=== PATIENT | female | born 1960 | race Caucasian/White ===

== ENCOUNTER 2018-09-26 07:25 | Day surgery (SDC) | payer BC ==
[2018-09-26 08:02] VITALS: BMI 32.2
[2018-09-26 09:43] VITALS: TEMP 97.6
[2018-09-26 10:36] VITALS: BP 120/60; PULSE 83
--- NOTE | 2018-09-27 15:51 | PATH ---
Surgical Pathology Report Patient Name: BRITNI NI [facility]. Rec. #: [id number] /Age/Gender: 1960 (Age: 58) / F Account: [id number] Location: ASU-ENDOSCOPY Taken: 09/26/2018 Received: 09/26/2018 Reported: 09/27/2018 Physicians: Mirza Drake M.D. Specimen(s) Received A: BX 2ND PORTION DUODENUM AND DUODENAL BULB B: BX FUNDUS C: BX GASTRIC BODY POLYP D: BX ANTRUM E: BX TRANSVERSE COLON POLYPS F: BX RIGHT COLON POLYP G: BX RECTAL POLYP Clinical History History of gastric polyp, adenoma surveillance Postoperative diagnosis: Gastric polyp, colon polyps Final Diagnosis A. DUODENUM, SECOND PORTION AND DUODENAL BULB, BIOPSY: DUODENAL MUCOSA WITH MILD ACUTE AND CHRONIC DUODENITIS AND PRESERVED VILLOUS ARCHITECTURE. B. STOMACH, FUNDUS, BIOPSY: GASTRIC MUCOSA WITH SEVERE CHRONIC ACTIVE GASTRITIS. Immunohistochemical STAIN FOR H. Pylori is negative C. GASTRIC BODY, POLYP, BIOPSY: POLYPOID GASTRIC BODY MUCOSA WITH MODERATE CHRONIC ACTIVE GASTRITIS AND FOCAL INTESTINAL METAPLASIA. Immunohistochemical STAIN FOR H. Pylori is negative D. STOMACH, ANTRUM, BIOPSY: GASTRIC ANTRAL MUCOSA WITH MILD CHRONIC ACTIVE GASTRITIS. Immunohistochemical STAIN FOR H. Pylori is negative. E. TRANSVERSE COLON, POLYPS, BIOPSY: POLYPOID COLONIC MUCOSA WITH PROMINENT LYMPHOID AGGREGATE. F. COLON, RIGHT, POLYP, BIOPSY: TUBULAR ADENOMA. G. RECTAL, POLYP, BIOPSY: TUBULAR ADENOMA. Electronically Signed Mckenna Pak M.D. Gross Description A. Received in formalin, labeled "biopsy second portion of duodenum and duodenal bulb" are 3 gonzalez, irregular portions of soft tissue ranging from 0.3-0.4 cm. in greatest dimension. The specimens are submitted in toto in one cassette. B. Received in formalin, labeled "biopsy fundus" are 5 gonzalez, irregular portions of soft tissue ranging from 0.2-0.4 cm. in greatest dimension. The specimens are submitted in toto in one cassette. C. Received in formalin, labeled "biopsy gastric body polyp" are 2 gonzalez, irregular portions of soft tissue measuring 0.2 and 0.4 cm. in greatest dimension. The specimens are submitted in toto in one cassette. D. Received in formalin, labeled "biopsy antrum" are 4 gonzalez, irregular portions of soft tissue ranging from 0.2-0.5 cm. in greatest dimension. The specimens are submitted in toto in one cassette. E. Received in formalin, labeled "biopsy transverse colon polyps" are 4 gonzalez, irregular portions of soft tissue ranging from 0.1-0.5 cm. in greatest dimension. The specimens are submitted in toto in one cassette. F. Received in formalin, labeled "biopsy right colon polyp" is a gonzalez, irregular portion of soft tissue measuring 0.4 cm. in greatest dimension. The specimen is submitted in toto in one cassette. G. Received in formalin, labeled "biopsy rectal polyp" is a gonzalez, irregular portion of soft tissue measuring 0.5 cm. in greatest dimension. The specimen is submitted in toto in one cassette. 09/26/[address] [facility]09/26/2018
== END 2018-09-26 11:01 | disposition home or self-care (01) ==
LOC: JASU-ENDO 07:25
PROVIDERS: ATTEND Internal Medicine Gastroenterology
PROC: 0DBL8ZX Excision of Transverse Colon, Via Natural or Artificial Opening Endoscopic, Diagnostic (ICD-10-PCS; 2018-09-26)
PROC: 0DBP8ZX Excision of Rectum, Via Natural or Artificial Opening Endoscopic, Diagnostic (ICD-10-PCS; 2018-09-26)
PROC: 0DB68ZX Excision of Stomach, Via Natural or Artificial Opening Endoscopic, Diagnostic (ICD-10-PCS; 2018-09-26)
PROC: 0DBK8ZX Excision of Ascending Colon, Via Natural or Artificial Opening Endoscopic, Diagnostic (ICD-10-PCS; principal; 2018-09-26 08:30)
DX: Z12.11 Encounter for screening for malignant neoplasm of colon (principal); D12.2 Benign neoplasm of ascending colon; D12.3 Benign neoplasm of transverse colon; K62.1 Rectal polyp; K64.8 Other hemorrhoids; K31.7 Polyp of stomach and duodenum
CPT/HCPCS: 88305-TC; 88342-TC

== ENCOUNTER 2019-08-02 08:16 | Day surgery (SDC) | payer BC ==
[2019-08-02 08:43] VITALS: BMI 31.7
--- NOTE | 2019-08-02 09:46 | HP ---
Satellite [facility] - Chief Complaint Chief Complaint: right shoulder pain - Past Medical History Allergies/Adverse Reactions: Allergies Allergy/AdvReac Type Severity Reaction Status Date / Time egg Allergy Verified 09/26/18 08:13 shrimp Allergy Verified 08/02/19 08:44 - Current Medications Current Medications: Home Medications Medication Instructions Recorded Levothyroxine [Synthroid -] 150 mcg PO DAILY@0700 #0 tablet 09/20/12 Insulin Glargine/Lixisenatide 20 unit SQ BID 09/26/18 [Soliqua 100 Unit-33 Mcg/ml Pen] Lisinopril 5 mg PO DAILY 09/26/18 Oxycodone HCl/Acetaminophen 1 - 2 tab PO Q6H #30 tab MDD 6 08/02/19 [Percocet 5-325 mg Tablet] Satellite Physical Exam - Physical Examination Vital Signs: Vital Signs Period Temp Pulse Resp BP Sys/Meek Pulse Ox Last 24 Hr 97.8 F-97.8 F 80-80 20-20 145-145/67-67 99 General Appearance: Well Nourished, Well Developed, Alert & Oriented x3 ENT: Clear Lung: Normal air movement Extremities: Other (right shoulder- + ttp, decr rom, + neer, + navarro, + empty can, nvi, MRI + rct) Neurological: Intact, Alert, Oriented Satellite Impression/Plan - Impression/Plan Impression: right shoulder rct Operative Procedure: right shoulder arthroscopy with RCR, SAD Date to be Performed: 08/02/19
[2019-08-02] MEDS ORDERED: MIDAZOLAM HCL 2 MG/2 ML SINGLE DOSE VIAL ONE ×2 (10:44)
[2019-08-02] MEDS ORDERED: ROPIVACAINE HCL 0.5% 30ML VIAL ONE (10:45)
[2019-08-02] MEDS ORDERED: KETOROLAC TROMETHAMINE 30 MG/1 ML VIAL ONE (11:10)
[2019-08-02] MEDS ORDERED: DEXAMETHASONE SOD PHOSPHATE 4 MG/1 ML VIAL ONE (11:10)
[2019-08-02] MEDS ORDERED: LIDOCAINE HCL/PF 2% SDV 5ML VIAL ONE (11:10)
[2019-08-02] MEDS ORDERED: ceFAZolin SODIUM 1 GM VIAL ONE (11:11)
[2019-08-02] MEDS ORDERED: ceFAZolin SODIUM 1 GM VIAL IVPB ONE (11:26)
[2019-08-02] MEDS ORDERED: oxyCODONE HCL 5 MG TABLET PO PRN ×2 (12:07)
[2019-08-02] MEDS ORDERED: ONDANSETRON 4 MG/2 ML VIAL IVPUSH PRN (12:07)
[2019-08-02] MEDS ORDERED: LACTATED RINGERS SOLUTION 1,000 ML IV SCH (12:15)
--- NOTE | 2019-08-02 12:32 | OP ---
Operative Note - Note: Operative Date: 08/02/19 Pre-Operative Diagnosis: right shoulder impingement syndrome, RTC tear Operation: right shoulder arthroscopy, subacromial decompression, arthroscopic RTC repair Implants: Arthrex Swvel Lock Anchors x 2, fiber wire x 4 Surgeon: Kevin Colon Manager Credit Collections: Abimael Fuchs Anesthesiologist/MID LEVEL GAME DESIGNER: Manny Laura Anesthesia: General, Local Specimens Removed: shavings Estimated Blood Loss (mls): 75 Drains, Volume Out (mls): 0 Blood Volume Replaced (mls): 0 Fluid Volume Replaced (mls): 1,000 Operative Report Dictated: Yes
[2019-08-02 14:17] VITALS: TEMP 98.4
--- NOTE | 2019-08-02 14:48 | OP ---
DATE OF OPERATION: 08/02/2019 PREOPERATIVE DIAGNOSIS: Right shoulder impingement syndrome and rotator cuff tear. POSTOPERATIVE DIAGNOSIS: Right shoulder impingement syndrome and rotator cuff tear. PROCEDURE: Right shoulder arthroscopy, subacromial decompression, and arthroscopic rotator cuff repair. SURGEON: Kevin Colon MD SUPERVISORY GEOGRAPHER: SABAS Ramirez ANESTHESIA: DEISI Hearn, right interscalene block with LMA anesthesia. DRAINS: None. COMPLICATIONS: None. BLOOD LOSS: 75 mL. BLOOD GIVEN: None. FLUID REPLACEMENT: 1000 mL Plasma-Lyte. SPECIMENS: Arthroscopic shavings. INDICATIONS: This patient is a 58-year-old female with a preoperative diagnosis of significant right shoulder pain, subacromial impingement, and rotator cuff tear. After understanding the potential risks, complications, alternatives and benefits to surgery versus nonsurgical treatment, the patient elected to undergo this procedure. DESCRIPTION OF PROCEDURE: The patient was brought to the operating room. Peripheral IV place. IV sedation given, 2 g of IV Ancef were given. A right interscalene block was performed. LMA anesthesia was induced. She was placed in the beach chair position with ample padding throughout. The right upper extremity was prepped and draped in the usual sterile fashion. The bony landmarks were marked out with a marking pen. A posterior portal was established. A diagnostic arthroscopy was done. The patient was seen to have a full-thickness tear of the rotator cuff. Supraspinatus and infraspinatus of the labrum was somewhat frayed but not torn. 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 The humeral head looked good. The biceps tendon was a little frayed but, otherwise, looked good. Next, our attention turned to the subacromial space. A lateral portal was established, and under direct visualization using a spinal needle, an ArthroCare wand was used to do a soft tissue bursectomy, soft tissue debridement. The patient had a tremendous amount of inflammatory bursitis. Once this was done, this revealed a moderate sized subacromial spur. The AC joint was a little arthritic. There was no significant distal clavicle spur. The 5.5-mm oval bur was used to take down the subacromial spur. It was fine tuned and reversed and done with a straight shaver. A subdeltoid bursectomy was also required. This revealed a large, full-thickness rotator cuff tear crescent shaped of both the supraspinatus and infraspinatus. It also delaminated. The edges were freshened up, frayed edges removed. Cautery used to tighten up the edge and the ArthroCare wand and straight shaver were used to prepare the landing. Once this was done, we put in 4 FiberWires in arthroscopic fashion using a Scorpion needle passer and then used 2 Arthrex SwiveLock anchors, 2 FiberWires/4 tails in each. First we put down the anterior one to the humeral head, cut the extra length of FiberWire then did the same to the posterior limb. It came together quite nicely. The arm was moved. The rotator cuff moved as a unit with the arm, and overall, the repair was even better than expected. The area was copiously irrigated and washed out. All instrumentation and excess saline were removed. The arthroscopy portals were closed with 3-0 nylon sutures. The area was then washed and dried, covered with Aquacel dressing. The patient was extubated. Total surgical time was about 1 hour. She was put into a shoulder immobilizer, brought down off the beach chair position, and brought into the ambulatory recovery room in stable condition. Mita [id number]
[2019-08-02 15:58] VITALS: BP 147/76; PULSE 88
--- NOTE | 2019-08-04 17:54 | PATH ---
Surgical Pathology Report Patient Name: BRITNI NI [facility]. Rec. #: [id number] /Age/Gender: 1960 (Age: 58) / F Account: [id number] Location: [facility] SURGICAL Taken: 08/02/2019 Received: 08/02/2019 Reported: 08/04/2019 Physicians: Kevin Colon M.D. Specimen(s) Received RIGHT SHOULDER SHAVINGS Clinical History Right shoulder tear Final Diagnosis RIGHT SHOULDER SHAVINGS: FRAGMENTS OF SYNOVIAL AND CARTILAGINOUS TISSUE WITH FOCAL FIBROSIS AND DEGENERATIVE CHANGE. SEPARATE SKELETAL MUSCLE WITH NO SIGNIFICANT PATHOLOGIC CHANGE. Electronically Signed Jose Manuel Sandoval M.D. Gross Description Received in formalin, labeled "right shoulder shavings," is a 5.5 x 4.0 x 0.6 cm. aggregate of gonzalez-yellow soft tissue fragments admixed with blood clot. A veterans contact representative portion is submitted in one cassette. 08/03/2019 [place]/03/2019
== END 2019-08-02 15:35 | disposition home or self-care (01) ==
LOC: JASU-SURG 08:16
PROVIDERS: ATTEND Orthopaedic Surgery
PROC: 0LQ14ZZ Repair Right Shoulder Tendon, Percutaneous Endoscopic Approach (ICD-10-PCS; principal; 2019-08-02 10:00)
PROC: 0RNJ4ZZ Release Right Shoulder Joint, Percutaneous Endoscopic Approach (ICD-10-PCS; 2019-08-02 10:00)
DX: M75.121 Complete rotator cuff tear or rupture of right shoulder, not specified as traumatic (principal); M75.41 Impingement syndrome of right shoulder
CPT/HCPCS: 88304-TC; 94760

== ENCOUNTER 2020-04-25 09:59 | Emergency (ER) | payer BC ==
[2020-04-25 10:06] VITALS: TEMP 98.2; BMI 30.9
--- NOTE | 2020-04-25 10:25 | PDOC ---
History of Present Illness - General Chief Complaint: Lightheaded Stated Complaint: FALL Time Seen by Provider: 04/25/20 10:25 - History of Present Illness Initial Comments: 59 YOF h/o hypothyroidism, DBM, HTN presents after fall this AM. Patient reports that she was at work, bent over to reach for something, became lightheaded and fell on her face. She did not lose consciousness. She denies feeling confusion, weakness or loss of sensation. She denies CP, SOB, N/V/D, fever or chills. Past History - Medical History Allergies/Adverse Reactions: Allergies Allergy/AdvReac Type Severity Reaction Status Date / Time egg Allergy Verified 09/26/18 08:13 shrimp Allergy Verified 08/02/19 08:44 Home Medications: Ambulatory Orders Levothyroxine [Synthroid -] 150 mcg PO DAILY@0700 #0 tablet 09/20/12 Insulin Glargine/Lixisenatide [Soliqua 100 Unit-33 Mcg/ml Pen] 20 unit SQ BID 09/26/18 Lisinopril 5 mg PO DAILY 09/26/18 Oxycodone HCl/Acetaminophen [Percocet 5-325 mg Tablet] 1 - 2 tab PO Q6H #30 tab MDD 6 08/02/19 Anemia: No Asthma: No Cancer: No Cardiac Disorders: No CVA: No COPD: No CHF: No Dementia: No Diabetes: Yes (IDDM) GI Disorders: Yes (IRRITABLE BOWEL SYNDROME) Disorders: No HTN: Yes Hypercholesterolemia: Yes Liver Disease: No Seizures: No Thyroid Disease: Yes (HYPOTHYROID DISEASE) - Surgical History Abdominal Surgery: Yes (TL) Appendectomy: Yes Cardiac Surgery: No Cholecystectomy: No Lung Surgery: No Neurologic Surgery: No Orthopedic Surgery: No - Reproductive History Is Patient Now?: No - Psycho-Social/Smoking History Smoking Status: No Smoking History: Never smoked Have you smoked in the past 12 months: No Number of Cigarettes Smoked Daily: 0 Information on smoking cessation initiated: No - Substance Abuse Hx (Audit-C & DAST Scrn) How often the patient has a drink containing alcohol: Never Score: In Men: 4 or > Positive; In Women: 3 or > Positive: 0 Screen Result (Pos requires Nsg. Audit-10AR): Negative In the last yr the pt used illegal drug/Rx for NonMed reason: No Score: Yes response is considered Positive: 0 Screen Result (Positive result requires Nsg. DAST-10): Negative Review of Systems - Review of Systems Able to Perform ROS?: Yes Constitutional: Yes: See HPI HEENTM: Yes: See HPI Respiratory: Yes: See HPI Cardiac (ROS): Yes: See HPI ABD/GI: Yes: See HPI : Yes: See HPI Musculoskeletal: Yes: See HPI Integumentary: Yes: See HPI Neurological: Yes: See HPI Endocrine: Yes: See HPI Hematologic/Lymphatic: Yes: See HPI *Physical Exam - Vital Signs Last Vital Signs Temp Pulse Resp BP Pulse Ox 98.2 F 82 18 164/72 97 04/25/20 10:03 04/25/20 10:03 04/25/20 10:03 04/25/20 10:03 04/25/20 10:03 - Physical Exam General Appearance: Yes: Nourished, Appropriately Dressed HEENT: positive: EOMI, PACO, Normal ENT Inspection, Normal Voice Neck: positive: Trachea midline, Normal Thyroid Respiratory/Chest: positive: Lungs Clear, Normal Breath Sounds Cardiovascular: positive: Regular Rhythm, Regular Rate, S1, S2 Gastrointestinal/Abdominal: positive: Normal Bowel Sounds, Flat, Soft Musculoskeletal: positive: Normal Inspection Extremity: positive: Normal Capillary Refill, Normal Inspection Neurologic: positive: hotel valet attendant II-XII NML intact, Fully Oriented, Alert, Normal Mood/Affect, Normal Response, Motor Strength 5/5 ED Treatment Course - LABORATORY CBC & Chemistry Diagram: 04/25/20 12:15 04/25/20 12:15 Medical Decision Making - Medical Decision Making 59 YOF h/o hypothyroidism, DBM, HTN presents after fall this AM. Patient reports that she was at work, bent over to reach for something, became lightheaded and fell on her face. She did not lose consciousness. She denies feeling confusion, weakness or loss of sensation. She denies CP, SOB, N/V/D, fever or chills. Vitals on arrival wnl. Physical exam reveals some erythema over forehead and nose. ddx: mechanical fall, dehydration, arrhythmia, CVA, TIA plan: CBC, CMP, Cardiac Profile, EKG, CT head and neck reassess: labs and imaging wnl, will dc home dispo: dc home 04/25/20 16:03 Discharge - Discharge Information Problems reviewed: Yes Clinical Impression/Diagnosis: Fall Condition: Good - Follow up/Referral - Patient Discharge Instructions Patient Printed Discharge Instructions: Drug Tests: Don't Fall Victim to a 'False-Positive' Additional Instructions: You were seen in the ER for a fall. You received labs and imaging both of which were normal. You were considered medically stable and found safe to return home. Please return to the ER if you experience chest pain, shortness of breath, fever, chills, nausea or vomiting, confusion or dizziness. Please follow up with your primary care regarding your visit to the ER. - Post Discharge Activity
[2020-04-25] MEDS ORDERED: ACETAMINOPHEN 325 MG TABLET (FP) PO ONE (11:08)
[2020-04-25] MEDS ORDERED: ACETAMINOPHEN 325 MG TABLET (FP) ONE (11:13)
--- NOTE | 2020-04-25 12:29 | PDOC ---
Documentation entered by Mario Miguel SCRIBE, acting as scribe for Blanca Alba MD. Blanca Alba MD: This documentation has been prepared by the Lamont cruz Xhesika, SCRIBE, under my direction and personally reviewed by me in its entirety. I confirm that the documentation accurately reflects all work, treatment, procedures, and medical decision making performed by me. Attending Attestation - Resident Resident Name: DarrellMars childress - ED Attending Attestation I have performed the following: I have examined & evaluated the patient, The case was reviewed & discussed with the resident, I agree w/resident's findings & plan, Exceptions are as noted - HPI HPI: 04/25/20 10:47 The patient is a 59y/o F with a pmh of hypothyroidism, IBS, and IDDM, who presents to the ED s/p fall. Pt states she was at work this morning, went to bend down, felt light headed and fell forward. Pt denies LOC. Pt denies any other preceding symptoms. States she did not eat breakfast this morning and typically she does eat breakfast. Currently reports feeling better and denies any complaints. Pt denies CP, SOB, abdominal pain, back pain, headache. Pt denies fevers, chills, cough, N/V/D. Denies any URI symptoms. Allergies: egg, shrimp - Physicial Exam PE: 04/25/20 12:21 General: well appearing HEENT: NCAT Chest: CTAB, good air entry, no wheezes rales or rhonchi CVS: + s1 s2, RRR - Medical Decision Making 04/25/20 12:22 59 yo F with presyncopal episode, currently asymptomatic, suspect vasovagal vs. mild hypoglycemia as patient reports not eating breakfast this morning, much less likely ACS and EKG sinus without ischemic changes however given h/o HTN and DM will check cardiac enzymes. Plan: -labs -cxr -reassess, if xray negative and 2 sets CE's negative can be d/jessica home with return precautions, recommend PMD f/u This clinical encounter is taking place during a federal and state health care emergency attributable to the novel [place] Virus pandemic. The [place] of the Department of Health and Human Services has declared, pursuant to the Public Health Service Act 319F-3 (42 U.S.C. 247d-6d), that a covered persons activities related to medical countermeasures against COVID-19 will be immune from liability under Federal and State law. Discharge - Discharge Information Problems reviewed: Yes Clinical Impression/Diagnosis: Fall Condition: Good Disposition: HOME - Follow up/Referral - Patient Discharge Instructions Patient Printed Discharge Instructions: Drug Tests: Don't Fall Victim to a 'False-Positive' Additional Instructions: You were seen in the ER for a fall. You received labs and imaging both of which were normal. You were considered medically stable and found safe to return home. Please return to the ER if you experience chest pain, shortness of breath, fever, chills, nausea or vomiting, confusion or dizziness. Please follow up with your primary care regarding your visit to the ER. - Post Discharge Activity
[2020-04-25 12:43] LABS: BASO % 0.4 % (0-2.0); EOS % 1.6 % (0-4.5); HEMATOCRIT 37.8 % (32.4-45.2); HEMOGLOBIN 12.6 GM/dL (10.7-15.3); LYMPH % 17.6 % (8-40); MCH 30.6 pg (25.7-33.7); MCHC 33.2 g/dl (32.0-36.0); MEAN CELL VOLUME 92.1 fl (80-96); MEAN PLT VOLUME 9.1 fl (7.5-11.1); NEUT % 76.4 % (42.8-82.8); PLATELET COUNT 280 K/MM3 (134-434); RBC 4.11 M/mm3 (3.60-5.2); WHITE BLOOD COUNT 11.7 K/mm3 (4.0-10.0)
[2020-04-25 13:54] LABS: ALBUMIN 3.6 g/dl (3.4-5.0); ALK PHOS 113 U/L (45-117); ANION GAP 6 MMOL/L (8-16); BILIRUBIN,TOTAL 0.3 mg/dL (0.2-1); BLOOD UREA NITROGEN 17.7 mg/dL (7-18); CALCIUM 9.4 mg/dL (8.5-10.1); CHLORIDE 104 mmol/L (98-107); CO2 29 mmol/L (21-32); CREATININE 0.7 mg/dL (0.55-1.3); GLUCOSE,RANDOM 157 mg/dL (74-106); POTASSIUM 4.3 mmol/L (3.5-5.1); SGOT/AST 16 U/L (15-37); SODIUM 139 mmol/L (136-145); TOT PROT 7.5 g/dl (6.4-8.2)
[2020-04-25 14:06] LABS: SGPT/ALT 21 U/L (13-61)
[2020-04-25 16:15] VITALS: BP 152/70; PULSE 88
== END 2020-04-25 16:20 | disposition home or self-care (01) ==
LOC: JER 09:59
DX: L53.8 Other specified erythematous conditions (principal)
CPT/HCPCS: 36415; 70450-TC; 72125-TC; 80053; 82550; 82553; 84484; 85025; 99285-25

== ENCOUNTER 2020-06-17 09:32 | Emergency (ER) | payer BC ==
--- OUTSIDE RECORDS SUMMARY | 2020-06-17 09:44 | XMS ---
:1960 Author Organization [facility] Care Team Providers Name Role Phone ISABELLE BAIG Unavailable Unavailable Re-disclosure Warning The records that you are about to access may contain information from federally- assisted alcohol or drug abuse programs. If such information is present, then the following federally mandated warning applies: This information has been disclosed to you from records protected by federal confidentiality rules (42 CFR part 2). The federal rules prohibit you from making any further disclosure of this information unless further disclosure is expressly permitted by the written consent of the person to whom it pertains or as otherwise permitted by 42 CFR part 2. A general authorization for the release of medical or other information is NOT sufficient for this purpose. The Federal rules restrict any use of the information to criminally investigate or prosecute any alcohol or drug abuse patient.The records that you are about to access may contain highly sensitive health information, the redisclosure of which is protected by Article 27-F of the [place] Public Health law. If you continue you may haveaccess to information: Regarding HIV / AIDS; Provided by facilities licensed or operated by the [place] [facility] Office of Mental Health; or Provided by the [facility] Office for People With Developmental Disabilities. If such information is present, then the following [facility] mandated warning applies: This information has been disclosed to you from confidential records which are protected by state law. State law prohibits you from making any further disclosure of this information without the specific written consent of the person to whom it pertains, or as otherwise permitted by law. Any unauthorized further disclosure in violation of state law may result in a fine or care home sentence or both. A general authorization for the release of medical or other information is NOT sufficient authorization for further disclosure. Encounters Encounter Providers Location Date Indications Data Source(s ) Outpatient Attender: ISABELLE Bowling 07/26/2019 [facility] [place] 03:33:00 PM Medical Shantelle WALTONAdmitter: FRANKLYN WALTONReferrer: ISABELLE WALTON Insurance Providers Payer Policy type Policy ID Covered Covered constitution party's Policy Pl an name / Coverage constitution party ID relationship to [employer] Inf ormation type [employer] PPO [id number] SP [id number] O BLUE O [id number] 01 [id number] [employer] PPO [id number] SP [id number] Problems, Conditions, and Diagnoses Code Display Name Description Problem Type Effective Dates Data Source(s) M25.511 Pain in right PAIN IN RIGHT Diagnosis 07/26/2019 [facility] 03:33:00 PM EST Medical C enter Results ID Date Data Source [id number] 01/03/2020 12:00:00 AM EDT [facility] Name Value Range Interpretation Code Description Data Liseth rce(s) Supporting Document(s ) 2019[facility] RNA XXX LAURO+probe- Imp This lab was ordered by SAIG[facility] and reported by [employer] Procedure
[2020-06-17 09:47] VITALS: BP 126/70; PULSE 103; TEMP 98.4; BMI 31.7
--- NOTE | 2020-06-17 09:54 | PDOC ---
History of Present Illness - General Chief Complaint: Cold Symptoms Stated Complaint: COLD SYMPTOMS Time Seen by Provider: 06/17/20 09:43 History Source: Patient Exam Limitations: No Limitations - History of Present Illness Initial Comments: 06/17/20 09:52 59-year-old female history of diabetes reports dry cough, body aches, sore throat, subjective chills, upper back pain for 5 days. Denies known sick contacts, chest pain, shortness of breath, vomiting, diarrhea, abdominal pain, recent travel, urinary complaints or any other symptoms. Patient has been taking acetaminophen twice a day with no relief of symptoms. States she tested negative for Covid in January 2020. ROS: as above PE: GENERAL: well-appearing, NAD, speaking full sentences HEAD: NCAT EYES: Pupils equal, round and reactive to light, sclera anicteric, conjunctiva clear ENT: pharynx: no erythema, no exudate, uvula midline NECK: supple CHEST: nontender RESP: clear, no w/r/r CARDIO: rrr, no m/g/r ABD: +BS, soft, nontender, non distended BACK: no midline spinal ttp, no CVAT EXTREMITIES: Normal range of motion, no edema NEUROLOGICAL: Normal speech, normal gait SKIN: Warm, Dry Is this a multiple visit Asthma Patient?: No Past History - Medical History Allergies/Adverse Reactions: Allergies Allergy/AdvReac Type Severity Reaction Status Date / Time egg Allergy Verified 06/17/20 09:35 shrimp Allergy Verified 06/17/20 09:35 Home Medications: Ambulatory Orders Levothyroxine [Synthroid -] 150 mcg PO DAILY@0700 #0 tablet 09/20/12 Insulin Glargine/Lixisenatide [Soliqua 100 Unit-33 Mcg/ml Pen] 20 unit SQ BID 09/26/18 Lisinopril 5 mg PO DAILY 09/26/18 Azithromycin 250 mg PO DAILY 5 Days #6 tablet 06/17/20 Anemia: No Asthma: No Cancer: No Cardiac Disorders: No CVA: No COPD: No CHF: No Dementia: No Diabetes: Yes (IDDM) GI Disorders: Yes (IRRITABLE BOWEL SYNDROME) Disorders: No HTN: Yes Hypercholesterolemia: Yes Liver Disease: No Seizures: No Thyroid Disease: Yes (HYPOTHYROID DISEASE) - Surgical History Abdominal Surgery: Yes (TL) Appendectomy: Yes Cardiac Surgery: No Cholecystectomy: No Lung Surgery: No Neurologic Surgery: No Orthopedic Surgery: No - Psycho-Social/Smoking History Smoking Status: No Smoking History: Never smoked Have you smoked in the past 12 months: No Number of Cigarettes Smoked Daily: 0 - Substance Abuse Hx (Audit-C & DAST Scrn) How often the patient has a drink containing alcohol: Never Score: In Men: 4 or > Positive; In Women: 3 or > Positive: 0 Screen Result (Pos requires Nsg. Audit-10AR): Negative In the last yr the pt used illegal drug/Rx for NonMed reason: No Score: Yes response is considered Positive: 0 Screen Result (Positive result requires Nsg. DAST-10): Negative *Physical Exam - Vital Signs Last Vital Signs Temp Pulse Resp BP Pulse Ox 98.4 F 103 H 18 126/70 100 06/17/20 09:35 06/17/20 09:35 06/17/20 09:35 06/17/20 09:35 06/17/20 09:35 ED Treatment Course - RADIOLOGY Radiology Studies Ordered: Category Date Time Status CHEST PA & LAT [RAD] Stat Radiology 06/17/20 09:51 Ordered Medical Decision Making - Medical Decision Making 06/17/20 09:54 59-year-old female history of diabetes reports dry cough, body aches, sore throat, subjective chills, upper back pain for 5 days. Denies known sick contacts, chest pain, shortness of breath, vomiting, diarrhea, abdominal pain, recent travel, urinary complaints or any other symptoms. Patient has been taking acetaminophen twice a day with no relief of symptoms. States she tested negative for Covid in January 2020. Likely viral illness cxr covid swab 06/17/20 10:53 Chest x-ray with no acute finding will send prescription for azithromycin to pharmacy Covid test pending Discharge - Discharge Information Problems reviewed: Yes Clinical Impression/Diagnosis: Viral illness Condition: Stable Disposition: HOME - Admission No - Follow up/Referral Referrals: Andre Adna MD [Primary Care Provider] - - Patient Discharge Instructions Additional Instructions: Take azithromycin as directed Rest, remain hydrated You will receive a phone call with Covid results within 2 to 3 days Return to ED if chest pain, shortness of breath or any worsening symptom - Post Discharge Activity
== END 2020-06-17 11:00 | disposition home or self-care (01) ==
LOC: JER 09:32
DX: R05 Cough (principal); J02.9 Acute pharyngitis, unspecified; B34.9 Viral infection, unspecified
CPT/HCPCS: 71046-TC-FY; 99283-25; C9803; U0003

== ENCOUNTER → 2022-01-15 | Day surgery (SDC) | payer BC | END | disposition home or self-care (01) | LOC: FMAMMOTONE 09:42 | PROVIDERS: ATTEND Internal Medicine Endocrinology, Diabetes & Metabolism | PROC: 0HBU3ZX Excision of Left Breast, Percutaneous Approach, Diagnostic (ICD-10-PCS; principal; 2022-01-15) | DX: D24.2 Benign neoplasm of left breast (principal); N64.89 Other specified disorders of breast; R92.1 Mammographic calcification found on diagnostic imaging of breast | CPT/HCPCS: 19081; 76098-TC-FY; 88305-TC ==

== ENCOUNTER 2023-04-24 09:14 | Emergency (ER) | payer BC ==
[2023-04-24 09:42] VITALS: TEMP 98; BMI 31.7
[2023-04-24] MEDS ORDERED: KETOROLAC TROMETHAMINE 30 MG/1 ML VIAL ONE (10:10)
[2023-04-24] MEDS ORDERED: ACETAMINOPHEN 500 MG TABLET (FP) ONE (10:10)
[2023-04-24 12:24] LABS: BASO % 0.9 % (0-2.0); EOS % 3.8 % (0-4.5); HEMOGLOBIN 12.2 GM/dL (10.7-15.3); LYMPH % 27.4 % (8-40); MCH 29.9 pg (25.7-33.7); MEAN CELL VOLUME 90.5 fl (80-96); MEAN PLT VOLUME 9.3 fl (7.5-11.1); MONO % 5.8 % (3.8-10.2); NEUT % 62.1 % (42.8-82.8); PLATELET COUNT 266 10^3/uL (134-434); RBC 4.08 M/mm3 (3.60-5.2); WHITE BLOOD COUNT 10.1 K/mm3 (4.0-10.0)
[2023-04-24 12:48] LABS: POTASSIUM 5.3 mmol/L (3.5-5.1)
[2023-04-24 12:50] LABS: CALCIUM 8.7 mg/dL (8.5-10.1)
[2023-04-24 12:51] LABS: ALBUMIN 3.4 g/dl (3.4-5.0); BLOOD UREA NITROGEN 19.3 mg/dL (7-18); MAGNESIUM 2.2 mg/dL (1.8-2.4)
[2023-04-24 12:54] LABS: CREATININE 0.6 mg/dL (0.55-1.3)
[2023-04-24 12:56] LABS: BILIRUBIN,TOTAL 0.3 mg/dL (0.2-1); TOT PROT 7.2 g/dl (6.4-8.2)
[2023-04-24 12:59] LABS: N-TERMINAL BNP 54.3 pg/ml (5-125)
[2023-04-24] MEDS ORDERED: hydrOXYzine PAMOATE 25 MG CAPSULE (FP) PO ONE ×2 (14:02→14:24)
[2023-04-24 14:54] VITALS: BP 124/77; PULSE 76; RESP 18
== END 2023-04-24 14:55 | disposition home or self-care (01) ==
LOC: JER 09:14
DX: R21 Rash and other nonspecific skin eruption (principal); R60.9 Edema, unspecified; R22.43 Localized swelling, mass and lump, lower limb, bilateral
CPT/HCPCS: 36415; 71045-TC-FY; 80053; 83735; 83880; 85025; 93005; 93010; 99285-25

== ENCOUNTER 2023-07-21 14:41 | Emergency (ER) | payer BC ==
[2023-07-21 14:56] VITALS: BP 141/53; PULSE 83; RESP 18; TEMP 97.5; BMI 31.4
[2023-07-21] MEDS ORDERED: ACETAMINOPHEN 1000 MG/100 ML BAG IVPB ONE (17:25)
[2023-07-21] MEDS ORDERED: ONDANSETRON 4 MG/2 ML VIAL IVPUSH ONE (17:25)
[2023-07-21] MEDS ORDERED: FAMOTIDINE 20 MG/50 ML IVPB 20 MG/50 ML MG IVPB ONE ×2 (17:25→18:09)
[2023-07-21] MEDS ORDERED: LACTATED RINGERS SOLUTION 1000 ML INFUS.BAG IV ONE (17:26)
[2023-07-21] MEDS ORDERED: ACETAMINOPHEN INJECTION 100 ML IVPB ONE (18:08)
[2023-07-21] MEDS ORDERED: ONDANSETRON 4 MG/2 ML VIAL ONE (18:08)
[2023-07-21 18:19] LABS: BASO % 0.7 % (0-2.0); EOS % 1.7 % (0-4.5); HEMATOCRIT 40.8 % (32.4-45.2); HEMOGLOBIN 13.7 GM/dL (10.7-15.3); MCH 30.7 pg (25.7-33.7); MCHC 33.7 g/dl (32.0-36.0); MEAN CELL VOLUME 91.2 fl (80-96); MEAN PLT VOLUME 9.2 fl (7.5-11.1); MONO % 5.7 % (3.8-10.2); NEUT % 67.9 % (42.8-82.8); PLATELET COUNT 301 10^3/uL (134-434); RBC 4.47 M/mm3 (3.60-5.2); RDW 14.1 % (11.6-15.6); URINE APPEARANCE CLEAR; URINE BILIRUBIN NEGATIVE (NEGATIVE); URINE COLOR YELLOW; URINE GLUCOSE (UA) 3+ (NEGATIVE); URINE KETONE NEGATIVE (NEGATIVE); URINE LEUK ESTERASE NEGATIVE (NEGATIVE); URINE NITRITE NEGATIVE (NEGATIVE); URINE PROTEIN NEGATIVE (NEGATIVE); WHITE BLOOD COUNT 11.7 K/mm3 (4.0-10.0)
[2023-07-21 18:30] LABS: INR 1.03 (0.83-1.09)
[2023-07-21 18:48] LABS: POTASSIUM 4.6 mmol/L (3.5-5.1)
[2023-07-21 18:51] LABS: ALBUMIN 3.8 g/dl (3.4-5.0); BLOOD UREA NITROGEN 15.2 mg/dL (7-18); CALCIUM 9.2 mg/dL (8.5-10.1)
[2023-07-21 18:54] LABS: CREATININE 0.8 mg/dL (0.55-1.3)
[2023-07-21 18:56] LABS: BILIRUBIN,TOTAL 0.2 mg/dL (0.2-1)
== END 2023-07-22 01:26 | disposition home or self-care (01) ==
LOC: JER 14:41
PROC: 3E033GC Introduction of Other Therapeutic Substance into Peripheral Vein, Percutaneous Approach (ICD-10-PCS; principal; 2023-07-21)
PROC: 3E033GC Introduction of Other Therapeutic Substance into Peripheral Vein, Percutaneous Approach (ICD-10-PCS; 2023-07-21)
PROC: 3E033GC Introduction of Other Therapeutic Substance into Peripheral Vein, Percutaneous Approach (ICD-10-PCS; 2023-07-21)
DX: R10.11 Right upper quadrant pain (principal); Z20.822 Contact with and (suspected) exposure to COVID-19
CPT/HCPCS: 0241U-QW; 36415; 71045-TC-FY; 74177-TC; 76705-TC; 80053; 81003; 83605; 83690; 84484; 85025; 85610; 86850; 86900; 86901; 87086; 93005; 93010; 99285-25; Q9967

== ENCOUNTER 2024-12-30 06:21 | Emergency (ER) | payer OTHER, BC ==
[2024-12-30 06:28] VITALS: BMI 29.2
[2024-12-30] MEDS ORDERED: ACETAMINOPHEN INJECTION 100 ML ONE (07:42)
[2024-12-30 07:48] LABS: ABSOLUTE IMMATURE GRANULOCYTES 0.02 x10^3/uL (0.0-0.031); BASOPHILS # 0.01 x10^3/uL (0.01-0.08); EOSINOPHIL % 0.6 % (0.7-5.8); EOSINOPHILS # 0.04 x10^3/uL (0.04-0.36); HEMATOCRIT 33.6 % (34.1-44.9); HEMOGLOBIN 11.2 g/dL (11.2-15.7); MCHC 33.3 g/dl (32.2-35.5); MEAN CELL VOLUME 93.9 fl (79.4-94.8); MEAN PLT VOLUME 10.2 fl (9.4-12.3); MONOCYTE # 0.73 x10^3/uL (0.24-0.86); MONOCYTE % 11.5 % (4.7-12.5); PLATELET COUNT 213 x10^3/uL (182-369); RDW 12.7 % (12.4-16.4)
[2024-12-30] MEDS: LACTATED RINGERS SOLUTION 1000 ML INFUS.BAG IV ONE (07:49)
[2024-12-30 07:59] LABS: PH,URINE 7.5 (5.0-8.0); URINE APPEARANCE CLEAR; URINE BILIRUBIN NEGATIVE (NEGATIVE); URINE COLOR YELLOW; URINE GLUCOSE (UA) 3+ (NEGATIVE); URINE KETONE NEGATIVE (NEGATIVE); URINE LEUK ESTERASE NEGATIVE (NEGATIVE); URINE NITRITE NEGATIVE (NEGATIVE); URINE PROTEIN NEGATIVE (NEGATIVE)
[2024-12-30 08:08] LABS: INR 1.1 (0.83-1.09)
[2024-12-30 08:11] LABS: ACTIVATED PTT 31.8 SECONDS (25.2-36.5)
[2024-12-30 08:19] LABS: POTASSIUM 4.1 mmol/L (3.5-5.1)
[2024-12-30 08:21] LABS: ALBUMIN 3.6 g/dl (3.4-5.0); BLOOD UREA NITROGEN 18.7 mg/dL (7-18); CALCIUM 9.3 mg/dL (8.5-10.1)
[2024-12-30 08:22] LABS: MAGNESIUM 1.8 mg/dL (1.8-2.4)
[2024-12-30 08:25] LABS: CREATININE 0.7 mg/dL (0.55-1.3)
[2024-12-30 08:26] LABS: BILIRUBIN,TOTAL 0.3 mg/dL (0.2-1); TOT PROT 6.9 g/dl (6.4-8.2)
[2024-12-30] MEDS: ACETAMINOPHEN 1000 MG/100 ML BAG IVPB ONE (08:51)
[2024-12-30] MEDS ORDERED: ALBUTEROL SO4 2.5/IPRATROPIUM 0.5 INH SOL 3 ML VIAL.NEB. NEB ONE (10:48)
[2024-12-30] MEDS: ALBUTEROL SO4 2.5/IPRATROPIUM 0.5 INH SOL 3 ML VIAL.NEB. NEB ONE (10:51)
[2024-12-30 12:46] VITALS: BP 112/60; PULSE 72; RESP 20; TEMP 98.5
[2024-12-30 19:03] LABS: HCV DIAGNOSTIC IN-HOUSE W/RFLX NON-REACTIVE (NONREACTIVE)
[2024-12-30 19:04] LABS: HIV INTERPRETATION NEGATIVE (NEGATIVE)
== END 2024-12-30 12:54 | disposition home or self-care (01) ==
LOC: JER 06:21
PROC: 3E033NZ Introduction of Analgesics, Hypnotics, Sedatives into Peripheral Vein, Percutaneous Approach (ICD-10-PCS; principal; 2024-12-30)
PROC: 3E0F7GC Introduction of Other Therapeutic Substance into Respiratory Tract, Via Natural or Artificial Opening (ICD-10-PCS; 2024-12-30)
DX: U07.1 COVID-19 (principal); R11.2 Nausea with vomiting, unspecified; R51.9 Headache, unspecified; R42 Dizziness and giddiness; R05.9 Cough, unspecified; M54.6 Pain in thoracic spine; R00.0 Tachycardia, unspecified; R50.9 Fever, unspecified
CPT/HCPCS: 0241U-QW; 36415; 71045-TC-FY; 80053; 81003; 83735; 84484; 85025; 85610; 85730; 86803; 87086; 87389; 93005; 93010; 93971-TC; 99285-25; J0131

== ENCOUNTER 2025-02-01 10:30 | Emergency (ER) | payer OTHER, BC ==
[2025-02-01 10:40] VITALS: BP 117/50; PULSE 80; RESP 16; TEMP 97.6; BMI 29.2
[2025-02-01] MEDS ORDERED: ACETAMINOPHEN 500 MG TABLET (FP) ONE (11:18)
[2025-02-01] MEDS ORDERED: LIDOCAINE 5% TOPICAL PATCH ONE (11:19)
[2025-02-01] MEDS: LIDOCAINE 5% TOPICAL PATCH TP ONE (11:29)
[2025-02-01] MEDS: ACETAMINOPHEN 500 MG TABLET (FP) PO ONE (11:29)
[2025-02-01] MEDS ORDERED: LIDOCAINE PATCH REMOVAL MC SCH (22:00)
== END 2025-02-01 14:47 | disposition home or self-care (01) ==
LOC: JERFT 10:30
DX: M71.22 Synovial cyst of popliteal space [Baker], left knee (principal); M17.12 Unilateral primary osteoarthritis, left knee; M25.562 Pain in left knee
CPT/HCPCS: 73562-TC-LT-FY; 73590-TC-LT-FY; 93971-TC; 99284-25